=== PATIENT | female | born 1980 | race American Indian/Alaskan Native ===

== ENCOUNTER 2020-12-05 15:44 | Outpatient (CLI) | payer BC ==
--- NOTE | 2020-12-07 11:35 | Mammography Report ---
DIGITAL SCREENING MAMMOGRAM WITH CAD, 12/05/2020 CLINICAL INFORMATION / INDICATION: Routine screening mammography. SCREENING MAMMO TECHNIQUE: Digital bilateral 2D mammography was obtained in the craniocaudal and mediolateral obliqu e projections. This examination was interpreted with the benefit of Computer-Aided Detection analysis . COMPARISON: 11/26/2019, 11/24/2018 FINDINGS: Breast Density: The breasts are heterogeneously dense, which may obscure small masses. No dominant mass, suspicious calcifications, or architectural distortion in the right breast. There is a focal asymmetric density in the upper outer quadrant of the left breast which is new. IMPRESSION: Further evaluation of focal asymmetric density on the left is required. Ultrasound with p ossible spot compression views recommended. Follow up recommendation: Ultrasound BI-RADS Category 0: Incomplete. Needs additional imaging evaluation and/or prior mammograms for kirt jacob. A "normal" or negative report should not discourage follow up or biopsy of a clinically significant f inding. A written summary of these findings will be mailed to the patient. The patient will be entered into a mammography reporting system which will generate a reminder letter for the patient's next appointmen t at the appropriate interval. The [employer] recommends yearly mammograms starting at age 40 and continuing as l melissa as a woman is in good health. Breast MRI is recommended for women with an approximate 20-25% or greater lifetime risk of breast cancer, including women with a strong family history of breast or ova tahir cancer or who have been treated for Hodgkin's disease. Signer Name: Jose C Soria MD Signed: 12/07/2020 11:30 AM Workstation Name: [facility]
== END 2020-12-05 15:45 | disposition home or self-care (01) ==
LOC: SPVWC 15:44
PROVIDERS: ATTEND Physician Assistant Medical
DX: Z12.31 Encounter for screening mammogram for malignant neoplasm of breast (principal)
CPT/HCPCS: 77067

== ENCOUNTER 2020-12-30 14:11 | Outpatient (CLI) | payer BC ==
--- NOTE | 2020-12-30 15:31 | Mammography Report ---
DIGITAL DIAGNOSTIC MAMMOGRAM WITH CAD , 12/30/2020 CLINICAL INFORMATION / INDICATION: ABNORMAL MAMMO R92.8 TECHNIQUE: Digital left mammographic imaging was performed. Spot compression views were obtained. This examination was interpreted with the benefit of Computer-aided Detection analysis. COMPARISON: Recent screening mammogram 12/05/2020 and prior mammogram 11/26/2019 FINDINGS: Breast Density: The breasts are heterogeneously dense, which may obscure small masses. The focal asym metric density noted in the left breast, upper outer quadrant, appears less prominent and distinct on spot compression imaging. However, the patient should still return for left breast ultrasound to exc lude possibility of underlying solid mass. Unfortunately, no technical director was available at the addie e of patient's exam. IMPRESSION: Focal asymmetric density described on recent screening mammogram is less prominent and le ss conspicuous on compression imaging. Patient will still need to return for ultrasound exam of the l eft breast upper outer quadrant. Follow up recommendation: Ultrasound BI-RADS Category 0: Incomplete. Needs additional imaging evaluation and/or prior mammograms for kirt jacob. A "normal" or negative report should not discourage follow up or biopsy of a clinically significant f inding. A written summary of these findings will be mailed to the patient. The patient will be entered into a mammography reporting system which will generate a reminder letter for the patient's next appointmen t at the appropriate interval. According to the [employer], yearly mammograms are recommended starting at age 40 and continuing as long as a woman is in good health. Breast MRI is recommended for women with an amanda roximately 20-25% or greater lifetime risk of breast cancer, including women with a strong family his tory of breast or ovarian cancer and women who have been treated for Hodgkin's disease. Signer Name: Breanne Lujan MD Signed: 12/30/2020 3:27 PM Workstation Name: [email or web address]
== END 2020-12-30 14:12 | disposition home or self-care (01) ==
LOC: SPVWC 14:11
PROVIDERS: ATTEND Physician Assistant Medical
DX: R92.8 Other abnormal and inconclusive findings on diagnostic imaging of breast (principal)

== ENCOUNTER 2021-01-04 13:19 | Outpatient (CLI) | payer BC ==
--- NOTE | 2021-01-04 14:37 | Ultrasound Report ---
ULTRASOUND BREAST LEFT COMPLETE, 01/04/2021 CLINICAL INFORMATION / INDICATION: Abnormal screening mammogram. Screening recall of the left breast for nodular density. TECHNIQUE: Complete sonographic evaluation of all 4 quadrants and retroareolar region was performed. COMPARISON: Screening mammogram, 12/05/2020. Left diagnostic mammogram, 12/30/2020 FINDINGS: There is an oval circumscribed mixed echogenic mass measuring 0.7 x 0.4 cm at the 1:00 position 3 cm from the nipple. There is no associated vascularity or posterior shadowing. This represents an incide ntal finding. There are numerous scattered small cysts and fibrocystic change. IMPRESSION: 1. Multiple small scattered cysts and fibrocystic change compatible with the recent mammographic find ings. 2. Incidental finding of mixed echogenic circumscribed mass at the 1:00 position which has a benign a ppearance and most likely represents a complicated cyst. A six-month follow-up left breast ultrasound is recommended to confirm stability. Follow up recommendation: Short term follow up in 6 months. BI-RADS Category 3: Probably Benign. Followup in 6 months. A normal or "negative" report should not preclude biopsy or follow-up of a clinically suspicious find ing. Signer Name: Lindsay Boyce MD Signed: 01/04/2021 2:32 PM Workstation Name: [email or web address]
== END 2021-01-04 13:20 | disposition home or self-care (01) ==
LOC: SPVWC 13:19
PROVIDERS: ATTEND Physician Assistant Medical
DX: N60.02 Solitary cyst of left breast (principal); N63.21 Unspecified lump in the left breast, upper outer quadrant; R92.8 Other abnormal and inconclusive findings on diagnostic imaging of breast